=== PATIENT | male | born 1995 | race African-American/Black ===

== ENCOUNTER 2017-10-07 08:26 | Emergency (ER) | payer SELFPAY ==
[2017-10-07] MEDS: SUMAtriptan SUCCINATE 25 MG TABLET PO (08:59)
[2017-10-07] MEDS: ONDANSETRON ODT 4 MG TAB.RAPDIS. PO (09:00)
== END 2017-10-07 09:25 | disposition home or self-care (01) ==
LOC: ER 09:25
DX: G43.909 Migraine, unspecified, not intractable, without status migrainosus (principal); F17.200 Nicotine dependence, unspecified, uncomplicated; R03.0 Elevated blood-pressure reading, without diagnosis of hypertension
CPT/HCPCS: 99283; Q0162